=== PATIENT | male | born 1990 | race Caucasian/White ===

== ENCOUNTER 2019-04-22 21:22 | Emergency (ER) | payer BC ==
[~2019-04-22] VITALS: Ht 172.7 cm; Wt 119.3 kg
[~2019-04-22 21:22] MED LIST: IBUP800T48 PO; METH750T2 PO
[2019-04-22 21:25] VITALS: BP 136/77; PULSE 91; RESP 20; Ht 172.7 cm; Wt 119.3 kg
[2019-04-22] MEDS ORDERED: KETOROLAC 60 MG INJ IM STA (22:09)
[2019-04-22] MEDS ORDERED: DIAZEPAM 10 MG/2 ML SYG IM ONE (22:30)
== END 2019-04-22 23:03 | disposition home or self-care (01) ==
LOC: FTE 21:22
DX: M62.838 Other muscle spasm (principal)
CPT/HCPCS: 96372; 99284; J1885; J3360